=== PATIENT | male | born 1980 | race Caucasian/White ===

== ENCOUNTER 2018-12-29 16:30 | Emergency (ER) | payer OTHER ==
[2018-12-29] MEDS: LIDOCAINE 2% (MDV) 20 ML INJ INJ (18:02)
[2018-12-29] MEDS: KETOROLAC 30 MG INJ IM (19:18)
== END 2018-12-29 19:30 | disposition home or self-care (01) ==
LOC: FTE 16:30
DX: S61.215A Laceration without foreign body of left ring finger without damage to nail, initial encounter (principal); F17.210 Nicotine dependence, cigarettes, uncomplicated; W26.0XXA Contact with knife, initial encounter; Y92.000 Kitchen of unspecified non-institutional (private) residence as the place of occurrence of the external cause
CPT/HCPCS: 12001; 96372; 99284-25

== ENCOUNTER → 2019-01-02 | Emergency (ER) | payer OTHER | END | disposition home or self-care (01) | LOC: FTE 16:20 | DX: Z48.02 Encounter for removal of sutures (principal) | CPT/HCPCS: 99281; Z7502 ==